=== PATIENT | male | born 1995 | race Caucasian/White ===

== ENCOUNTER 2017-02-10 21:08 | Emergency (ER) | payer OTHER ==
[2017-02-10] MEDS ORDERED: HYDROmorphone 1 MG/ML Syringe IVPUSH ONE ×2 (21:23→23:11)
[2017-02-10] MEDS ORDERED: Diphtheria,Pertussis(Acell),Tetanus Vaccine 0.5 ML Syringe IM ONE (21:24)
[2017-02-10] MEDS ORDERED: Sodium Chloride 0.9% 1,000 ML IV ONE ×2 (21:24→22:40)
[2017-02-10] MEDS ORDERED: ceFAZolin 1,000 MG VIAL IVPUSH ONE (21:25)
--- NOTE | 2017-02-10 21:28 | EDM.PDOC ---
ED HPI GENERAL MEDICAL PROBLEM - General Chief Complaint: Upper Extremity Injury/Pain Stated Complaint: LACERATION LT HAND Time Seen by Provider: 02/10/17 21:23 Source of Information: Reports: Patient History Limitations: Reports: No Limitations - History of Present Illness INITIAL COMMENTS - FREE TEXT/NARRATIVE: HISTORY AND PHYSICAL: History of present illness: [22-year-old male now presents to the emergency department after avulsing the entire pad of his left thumb. Patient was at work he got his hand caught in some kind of a chain apparatus which ripped off the pad of his thumb. Tetanus is up-to-date]. Patient has some minor abrasions on the remainder of his hand but is able to move everything else without difficulty. He states the thumb is painful. No allergies to antibiotics. No other complaints Review of systems: As per history of present illness and below otherwise all systems reviewed and negative. Past medical history: As per history of present illness and as reviewed below otherwise noncontributory. Surgical history: As per history of present illness and as reviewed below otherwise noncontributory. Social history: No reported history of drug or alcohol abuse. Family history: As per history of present illness and as reviewed below otherwise noncontributory. Physical exam: Left thumb with pad avulsed. Bone exposed with fracture fragments visible. Remainder of exam is benign HEENT: Normocephalic, atraumatic, pupils normal and symmetrical, supple neck, no meningismus, normal color Lungs: Normal and symmetrical chest wall excursion bilateral with no tachypnea or increased work of breathing, grossly normal chest exam Heart: No tachycardia in triage Abdomen: Normal-appearing, nondistended, no visible mass or asymmetry Pelvis: Normal-appearing Genitourinary: Deferred Rectal exam: Deferred Extremities: Atraumatic, normal use and range of motion, no visible evidence of gross neurovascular compromise Neuro: Awake, alert, oriented. Normal and appropriate mental status. Cranial nerves grossly unremarkable. Motor function normal. Nonfocal neurologic exam. Diagnostics: [X-ray left hand and thumb with avulsion of the pad of the left thumb and fractured distal phalange with fracture fragments in the wound. Remainder of hand is benign interpreted by me] Therapeutics: [Analgesia, Ancef IM, wet to dry dressing placed] Impression: [] Plan: [Patient with avulsion with open fracture and exposed bone. Wound will require primary revision prior to outpatient management. No hand surgery on-call available here today. Case discussed with Dr. Hannon ER physician at [facility] in [place]. He is aware the history and findings accept patient in transfer for definitive surgical care. Patient stable for transfer Definitive disposition and diagnosis as appropriate pending reevaluation and review of above. Left 1-Thumb Pain Score (Numeric/FACES): 10 - Related Data Allergies Allergy/AdvReac Type Severity Reaction Status Date / Time No Known Allergies Allergy Verified 02/10/17 21:27 Home Meds: Home Meds . [No Known Home Meds] 02/10/17 [History] Review of Systems - Review of Systems Review Of Systems: See Below (History of present illness) ED EXAM, GENERAL - Physical Exam Exam: See Below (History of present illness) Course - Vital Signs Last Recorded V/S: Last Vital Signs Temp 37.4 C 02/10/17 23:45 Pulse 91 02/10/17 23:45 Resp 18 02/10/17 23:45 BP 135/61 02/10/17 23:45 Pulse Ox 100 02/10/17 23:45 - Orders/Labs/Meds Orders: Active Orders 24 hr Category Date Time Status Vaccines to be Administered [RC] PER UNIT ROUTINE Care 02/10/17 21:25 Active Fingers Thumb Lt FA [CR] Stat Exams 02/10/17 21:27 Taken Hand 2V Lt [CR] Stat Exams 02/10/17 21:27 Taken Labs: Laboratory Tests 02/10/17 02/10/17 Range/Units 21:36 21:36 WBC 9.48 (4.0-11.0) K/uL RBC 5.07 (4.50-5.90) M/uL Hgb 15.1 (13.0-17.0) g/dL Hct 42.9 (38.0-50.0) % MCV 84.6 (80.0-98.0) fL MCH 29.8 (27.0-32.0) pg MCHC 35.2 (31.0-37.0) g/dL RDW Std Deviation 41.7 (28.0-62.0) fl RDW Coeff of Rosy 14 (11.0-15.0) % Plt Count 248 (150-400) K/uL MPV 11.30 (7.40-12.00) fL Neut % (Auto) 31.7 L (48.0-80.0) % Lymph % (Auto) 56.9 H (16.0-40.0) % [place] % (Auto) 7.0 (0.0-15.0) % Eos % (Auto) 3.6 (0.0-7.0) % Baso % (Auto) 0.8 (0.0-1.5) % Neut # (Auto) 3.0 (1.4-5.7) K/uL Lymph # (Auto) 5.4 H (0.6-2.4) K/uL [place] # (Auto) 0.7 (0.0-0.8) K/uL Eos # (Auto) 0.3 (0.0-0.7) K/uL Baso # (Auto) 0.1 (0.0-0.1) K/uL Nucleated RBC % 0.0 /100WBC Nucleated RBCs # 0 K/uL Sodium 137 (136-146) mmol/L Potassium 2.4 L* (3.5-5.1) mmol/L Chloride 103 (98-110) mmol/L Carbon Dioxide 20 L (21-31) mmol/L BUN 11 (6.0-23.0) mg/dL Creatinine 0.7 (0.6-1.5) mg/dL Est Cr Clr Drug Dosing 150.52 mL/min Estimated GFR (MDRD) > 60.0 ml/min Glucose 121 H (60-110) mg/dL Calcium 6.0 L (8.8-10.8) mg/dL Meds: Medications Discontinued Medications Generic Name Dose Route Start Last Admin Trade Name Freq PRN Reason Stop Dose Admin Cefazolin Sodium 1,000 mg 02/10/17 21:25 02/10/17 22:16 Ancef IVPUSH 02/10/17 21:26 Not Given ONETIME ONE Diphtheria/Tetanus/Acell Pertussis 0.5 ml 02/10/17 21:24 02/10/17 22:17 Adacel IM 02/10/17 21:25 Not Given .ONCE ONE Hydromorphone HCl 1 mg 02/10/17 21:23 02/10/17 21:45 Dilaudid IVPUSH 02/10/17 21:24 1 mg ONETIME ONE Administration Hydromorphone HCl 1 mg 02/10/17 23:11 02/10/17 23:25 Dilaudid IVPUSH 02/10/17 23:12 1 mg ONETIME ONE Administration Sodium Chloride 1,000 mls @ 999 mls/hr 02/10/17 21:24 02/10/17 21:46 Normal Saline IV 02/10/17 22:24 999 mls/hr STAT ONE Administration Cefazolin Sodium/Dextrose 1 gm 50 mls @ 100 mls/hr 02/10/17 22:03 02/10/17 22 :50 / Premix IV 02/10/17 22:32 100 mls/hr ONETIME ONE Administration Sodium Chloride 1,000 mls @ 999 mls/hr 02/10/17 22:40 02/10/17 22:50 Normal Saline IV 02/10/17 23:40 999 mls/hr .Bolus ONE Administration Lorazepam 1 mg 02/10/17 21:40 02/10/17 21:54 Ativan IVPUSH 02/10/17 21:41 1 mg ONETIME ONE Administration Potassium Chloride 60 meq 02/10/17 22:16 02/10/17 22:56 Klor-Con M20 PO 02/10/17 22:17 60 meq ONETIME ONE Administration Potassium Chloride Confirm 02/10/17 22:55 02/10/17 23:02 Klor-Con M20 Administered 02/10/17 22:56 Not Given Dose 20 meq .ROUTE .STK-MED ONE Departure - Departure Time of Disposition: 23:45 Disposition: DC/Tfer to Acute Hospital 02 Condition: Fair Clinical Impression: Open fracture of left thumb, Avulsion of fingertip, Laceration - Discharge Information Referrals: PCP,None [Primary Care Provider] - Forms: ED Department Discharge - My Orders Last 24 Hours: My Active Orders 02/10/17 21:25 Vaccines to be Administered [RC] PER UNIT ROUTINE 02/10/17 21:27 Fingers Thumb Lt FA [CR] Stat Hand 2V Lt [CR] Stat - Assessment/Plan Last 24 Hours: My Active Orders 02/10/17 21:25 Vaccines to be Administered [RC] PER UNIT ROUTINE 02/10/17 21:27 Fingers Thumb Lt FA [CR] Stat Hand 2V Lt [CR] Stat
[2017-02-10] MEDS ORDERED: LORazepam 2 MG/ML MDV IVPUSH ONE (21:40)
[2017-02-10] MEDS ORDERED: ceFAZolin 1 GM in Premix Bag 1 BAG IV ONE (22:03)
[2017-02-10 22:04] LABS: CHLORIDE,CL 103 mmol/L (98-110); SODIUM,NA 137 mmol/L (136-146)
[2017-02-10] MEDS ORDERED: Potassium Chloride 20 MEQ Tab.ER PO ONE (22:16)
[2017-02-10] MEDS ORDERED: Potassium Chloride 20 MEQ Tab.ER ONE (22:55)
[2017-02-10 23:49] VITALS: BP 135/61
--- NOTE | 2017-02-11 16:52 | CR ---
EXAM DATE: 02/10/17 PATIENT'S AGE: 22 Patient: LUIS EDUARDO BEE Facility: [place], [place] Site . Site : 1995 Study: XRay Extremity Left Hand [id number]/2/2017 10:46:23 PM Ordering Physician: Enrique Orr Final Report: INDICATION: Hand and thumb injury. TECHNIQUE: Two views left hand. COMPARISON: None Findings and impression: There is a soft tissue avulsion injury of the tip of the distal phalanx of the thumb. Underlying bone of the distal phalanx is exposed. No definite associated fracture. There is no dislocation. Joint spaces are preserved. Dictated by Ronal Rojas MD @ 02/10/2017 11:13:42 PM Dictated by: Ronal Rojas MD @ 02/10/2017 23:14:04 (Electronic Signature) Report Signed by Proxy. ANNA
--- NOTE | 2017-02-11 16:53 | CR ---
EXAM DATE: 02/10/17 PATIENT'S AGE: 22 Patient: LUIS EDUARDO BEE Facility: [place], [place] Site . Site : 1995 Study: XRay Extremity Left Thumb [id number]/2/2017 10:47:10 PM Ordering Physician: Enrique Orr Final Report: INDICATION: Hand and thumb injury. TECHNIQUE: Two views left hand. COMPARISON: None Findings and impression: There is a soft tissue avulsion injury of the tip of the distal phalanx of the thumb. Underlying bone of the distal phalanx is exposed. No definite associated fracture. There is no dislocation. Joint spaces are preserved. Dictated by Ronal Rojas MD @ 02/10/2017 11:15:15 PM Dictated by: Ronal Rojas MD @ 02/10/2017 23:15:30 (Electronic Signature) Report Signed by Proxy. ANNA
== END 2017-02-10 23:45 ==
LOC: MW.ED 21:08
DX: S62.522B Displaced fracture of distal phalanx of left thumb, initial encounter for open fracture (principal); W23.1XXA Caught, crushed, jammed, or pinched between stationary objects, initial encounter
CPT/HCPCS: 36415; 73120; 73140; 80048; 85025; 96361; 96365; 96375; 96376; 99285; A9270; J0690; J1170; J2060; J7040; 99283